=== PATIENT | male | born 1955 | race Caucasian/White ===

== ENCOUNTER → 2019-03-12 | Emergency (ER) | payer MEDICARE, OTHER ==
[~2019-03-12] VITALS: Ht 167.6 cm; Wt 59.0 kg
[~2019-03-12] MED LIST: ACETAMINOPHEN 325 MG TABLET ONE; ACETAMINOPHEN 325 MG TABLET PO ONE; DIPHENHYDRAMINE HCL 12.5 MG/5 ML UDC PO ONE; KETOROLAC TROMETHAMINE 15 MG/ML VIAL ONE; KETOROLAC TROMETHAMINE INJ 30 MG/ML VIAL IM ONE; LEVE750T10 PO; METOCLOPRAMIDE HCL 10 MG TABLET ONE; METOCLOPRAMIDE HCL 10 MG TABLET PO ONE; NORT10CA PO; OXYC15TA2 PO; PENT400T17 PO; diphenhydrAMINE HCL 25 MG CAPSULE ONE
[2019-03-12 13:30] VITALS: BP 137/80
--- NOTE | 2019-03-12 14:19 | NUR ---
PATIENT A/OX4, AMBULATORY IN STEADY GAIT. DENIES PAIN AT THIS TIME. REFUSED TO SIGN HOMELESS WAIVER FORM. Patient given written and verbal discharge instructions. Patient verbalizes understanding of instructions. Patient is ambulatory with steady gait. Refuses offer of usp placement. Patient given list of available shelters in surrounding area. PATIENT DISCHARGED TO THE WAITING ROOM, WAITING FOR TEST SPECIALIST.
--- NOTE | 2019-03-15 15:02 | NUR ---
Vamp Wetter Consultation requested over the weekend by Dr. Leighton Patel for individual experiencing homelessness. SW unable to assess patient as pt. was D/C 03/12 and SW not available over holiday weekend. Per EMR, pt. refused resources and usp placement and refused to sign Homeless Waiver Form.
== END | disposition home or self-care (01) ==
LOC: ER 11:04
DX: R51 Headache (principal); G89.29 Other chronic pain; M54.5 Low back pain; I10 Essential (primary) hypertension; Z59.0 Homelessness; Z79.899 Other long term (current) drug therapy
CPT/HCPCS: 96372; 99284; J1885; J8597; Q0163 ×2

== ENCOUNTER 2019-03-18 10:23 | Emergency (ER) | payer MEDICARE, OTHER ==
[~2019-03-18] VITALS: Ht 172.7 cm; Wt 65.3 kg
[~2019-03-18 10:23] MED LIST changes: -ACETAMINOPHEN 325 MG TABLET ONE; -ACETAMINOPHEN 325 MG TABLET PO ONE; -DIPHENHYDRAMINE HCL 12.5 MG/5 ML UDC PO ONE; -KETOROLAC TROMETHAMINE 15 MG/ML VIAL ONE; -KETOROLAC TROMETHAMINE INJ 30 MG/ML VIAL IM ONE; -METOCLOPRAMIDE HCL 10 MG TABLET ONE; -METOCLOPRAMIDE HCL 10 MG TABLET PO ONE; -diphenhydrAMINE HCL 25 MG CAPSULE ONE
--- NOTE | 2019-03-18 10:26 | NUR ---
PT [id number], PER EMS AMS. INITIALLY WENT TO URGENT CARE FOR HEADACHE AND SENT OUT. PER REPORT, SECURITY CALLED 911. PT IS AAOX3, NOT IN RESPIRATORY DISTRESS, HOOKED TO MONITOR, KEPT RESTED AND COMFORTABLE, WILL CONTINUE TO MONITOR.
--- NOTE | 2019-03-18 10:35 | NUR ---
PT SEEN AND EXAMINED BY .
--- NOTE | 2019-03-18 11:47 | NUR ---
AWAITING PACK TRAIN DRIVER FOR EVAL.
--- NOTE | 2019-03-18 11:49 | NUR ---
PROJECT MGR AT BEDSIDE FOR EVAL.
--- NOTE | 2019-03-18 11:59 | NUR ---
IV removed. Catheter intact and site benign. Pressure and 4x4 applied to site. No bleeding noted.
--- NOTE | 2019-03-18 12:05 | NUR ---
Patient given written and verbal discharge instructions. Patient verbalizes understanding of instructions. Patient is ambulatory with steady gait. Refuses offer of residential placement. Patient given list of available shelters in surrounding area. Patient discharged in proper clothing. All belongings returned. Signed homeless waiver form. Name band removed. Tap Card provided.
[2019-03-18 12:07] VITALS: BP 129/78
--- NOTE | 2019-03-18 12:25 | NUR ---
Social service consult requested by ER staff. Pt is a 64 year old male who was admitted to [facility] for altered state. SW met with pt. bedside. Pts belongings were at bedside. Pt. is alert and oriented x3 (person, place, situation). Pt was cooperative with SW during the assessment. Pt. is ambulatory. Pt. states he has been homeless for a while. SW inquired with pt. if he has worked with any caseworkers in the community. Pt. stated, No. Pt. did not disclose any public benefits or income. Pt. states he would use alcohol, drugs, and cigarettes If I could. SW offered substance use program referrals and pt was receptive but declined being referred. SW offered emergency long-term referrals but pt. declined. ROCIO provided pt with information on emergency inland shelters [[facility]: package pick up address; [address] [place] [address]], in case pt changes motivation. ROCIO also provided the following referrals to pt: [facility] [address] [place] [id number] , [facility] [address] [facility]. [facility] [address] , and the [place]. Pt. denies suicidal and homicidal ideation at this time. Pt. signed homeless waiver and it was placed in chart. Pt. will require a TAP card upon discharge. No other services needed at this time. SW is available if needed.
[2019-03-19] MEDS ORDERED: TRAZ150T75 (20:46)
[2019-03-19] MEDS ORDERED: OMEP1CAP24 (20:46)
== END 2019-03-18 12:32 | disposition home or self-care (01) ==
LOC: ER 10:26
DX: G89.29 Other chronic pain (principal); M54.9 Dorsalgia, unspecified; I10 Essential (primary) hypertension; Z79.899 Other long term (current) drug therapy
CPT/HCPCS: 82962-TC

== ENCOUNTER 2019-03-18 15:47 | Emergency (ER) | payer MEDICARE, OTHER ==
[~2019-03-18] VITALS: Ht 167.6 cm; Wt 65.8 kg
[2019-03-18 16:11] VITALS: BP 158/101
--- NOTE | 2019-03-18 19:28 | NUR ---
PT SITTING IN THE WAITING ROOM CALLED FOR BED ASSIGNMENT. PT REFUSING TO BE SEEN.
--- NOTE | 2019-03-18 23:03 | NUR ---
PATIENT REFUSING TO BE SEEN.
[2019-03-19] MEDS ORDERED: OMEP1CAP24 (20:46)
[2019-03-19] MEDS ORDERED: TRAZ150T75 (20:46)
== END 2019-03-19 01:23 | disposition left against medical advice (07) ==
LOC: ER 15:48
DX: M54.5 Low back pain (principal); G89.29 Other chronic pain; Z53.21 Procedure and treatment not carried out due to patient leaving prior to being seen by health care provider
CPT/HCPCS: J7030

== ENCOUNTER 2019-03-19 14:00 | Inpatient (IN) | payer MEDICARE, OTHER ==
[~2019-03-19] VITALS: Ht 172.7 cm; Wt 69.9 kg
--- NOTE | 2019-03-19 14:15 | NUR ---
[id number] FROM THE COMFREY FOR GEN WEAKNESS. A/OX4, NO DISTRESS NOTED, AMBULATORY WITH STEADY GAIT. NEEDS ATTENDED. WILL MONITOR.
[2019-03-19 15:13] LABS: BASOPHILS % (AUTO) 0.4 % (0.0-2.0); HEMATOCRIT 44 % (39-51); HEMOGLOBIN 14.7 g/dL (13.5-17.5); LYMPHOCYTES # (AUTO) 0.4 /CMM (0.8-4.8); LYMPHOCYTES % (AUTO) 5.5 % (20.0-44.0); MEAN CORPUSCULAR HGB CONC 34 g/dl (31.0-36.0); MEAN CORPUSCULAR VOLUME 96 fL (80-96); MONOCYTES # (AUTO) 0.1 /CMM (0.1-1.30); MONOCYTES % (AUTO) 1.2 % (2.0-12.0); NEUTROPHILS # (AUTO) 6.8 /CMM (1.8-8.9); NEUTROPHILS % (AUTO) 92.9 % (43.0-81.0); PLATELET COUNT (AUTO) 111 /CMM (150-450); RED BLOOD CELL COUNT(AUTO) 4.54 MIL/uL (4.5-6.0); WHITE BLOOD COUNT (AUTO) 7.3 K/uL (4.3-11.0)
[2019-03-19 15:24] LABS: CALCIUM, SERUM 9.1 mg/dL (8.5-10.1); CARBON DIOXIDE 23 mmol/L (21-32); CHLORIDE 104 mmol/L (98-107); CREATININE 0.7 mg/dL (0.6-1.3); GLUCOSE 140 mg/dL (74-106); POTASSIUM 4.2 mmol/L (3.5-5.1); SODIUM SERUM 139 mmol/L (136-145); UREA NITROGEN, BLOOD 10 mg/dL (7-18)
[2019-03-19 15:29] LABS: ALANINE AMINOTRANSFERASE 112 U/L (12-78); ALBUMIN 3.7 g/dL (3.4-5.0); ALCOHOL, BLOOD < 3 mg/dL (0-0); ALKALINE PHOSPHATASE 135 U/L (46-116); ASPARTATE AMINOTRANSFERASE 84 U/L (15-37); BILIRUBIN,DIRECT 0.2 mg/dL (0.0-0.2); BILIRUBIN,TOTAL 0.5 mg/dL (0.2-1.0); SALICYLATE 3.5 mg/dL (2.8-20.0); TOTAL PROTEIN, SERUM 8.4 g/dL (6.4-8.2)
[2019-03-19 15:31] LABS: ACETAMINOPHEN 0 ug/ml (10-30)
[2019-03-19 15:55] LABS: APPEARANCE,URINE Clear (CLEAR); BILIRUBIN,URINE Negative (NEGATIVE); BLOOD, URINE Trace-lysed Ery/uL (NEGATIVE); COLOR,URINE Yellow (YELLOW); KETONES,URINE Negative (NEGATIVE); LEUKOCYTE ESTERASE ,URINE Negative (NEGATIVE); NITRITE, URINE Negative (NEGATIVE); PH,URINE 7.5 (5.0-8.0); PROTEIN,URINE Negative (NEGATIVE); UGLUCOSE Negative (NEGATIVE); UROBILINOGEN,URINE 0.2 EU/dL (0.2)
[2019-03-19 16:29] LABS: BACTERIA,URINE None seen /HPF (None Seen); RBC,URINE 0-2 /HPF (0-2); SQUAMOUS EPITHELIAL CELL,UR Few /HPF (None Seen); WBC,URINE 0-2 /HPF (0-3)
--- NOTE | 2019-03-19 18:11 | NUR ---
GOT BED 211
--- NOTE | 2019-03-19 18:26 | NUR ---
ATTEMPTED TO GIVE REPORT.
--- NOTE | 2019-03-19 18:40 | NUR ---
REPORT GIVEN TO ODIN STALEY FOR SHERINE. PATIENT TRANSFERRED TO [facility] IN STABLE CONDITION.
[2019-03-19] MEDS ORDERED: MAGNESIUM HYDROXIDE 30 ML UDC PO PRN (20:00)
[2019-03-19] MEDS ORDERED: ACETAMINOPHEN 325 MG TABLET PO PRN (20:00)
[2019-03-19] MEDS ORDERED: MAG HYDROX/AL HYDROX/SIMETH 30 ML UDC PO PRN (20:00)
[2019-03-19 20:30] VITALS: BP 151/98
[2019-03-19] MEDS ORDERED: OMEP1CAP24 (20:46)
[2019-03-19] MEDS ORDERED: TRAZ150T75 (20:46)
[2019-03-19] MEDS: LORAZEPAM 0.5 MG TABLET PO PRN (20:51)
--- NOTE | 2019-03-19 20:51 | NUR ---
RN NOTES: PT. C/O FEELING ANXIOUS, RESTLESS , ATIVAN 0.5 MG PO PRN GIVEN PER PT. REQUEST , WILL CONTINUE TO MONITOR.
[2019-03-19 21:31] VITALS: BP 135/70
[2019-03-19] MEDS ORDERED: BLOOD SUGAR DIAGNOSTIC 1 EACH STRIP IN ONE (22:00)
--- NOTE | 2019-03-19 22:37 | NUR ---
ADMISSION NOTES: ADMITTED THIS 64Y/O MALE PATIENT ADMIT FROM SOH/ER , PT ADMITTED TO GPS ON 5150 HOLD GRAVELY DISABLE , PER HOLD, DEPRESSED ,CONFUSED ,DISORGNIZED, DISORIENTED, REFUSING MEDICATION REFUSING STAFF CARE, PT.IS POOR HISTORIAN , HE IS UNABLE TO PROVIDE FOR HIS FOOD [facility] OR CLOTHING DUE TO HIS MENTAL DISORDER .UPON FACE TO FACE ASSESSMENT PATIENT IS A&O X ,1 CONFUSED DISORGNIZED, DISORIENTED ANXIOUS, FLAT AFFECT,PARANOID DISHELVED, ,EASILY GETS AGITATED, DENIES SI/HI AT THIS TIME , PT. IS POOR HISTORIAN, POOR INSIGHT ,POOR JUDGEMENT , PT. REFUSED TO TAKE SHOWER AT THIS TIME , PT. REFUSED TO SIGNS ADMISSION CONSENT PAPERS , DUE TO MENTAL STATUS CONFUSED , PT. REFUSED INTITAALY BODY SKIN ASSESSMENT, PER PT. MY SKIN IS FINE, PT. REFUSED INTIALLY BLOOD SUGAR CHECK , ENCOURAGED, EXPLAINED RISKS AND BENEFITS STILL REFUSED , BOTH MD AWARE AND NOTIFIED OF THE ADMISSION, BELONGINGS CONTRABAND WERE DONE , NURSING ASSESSMENT DONE ,PT. RIGHTS DISCUSS BY INVESTMENT CONSULTANT , PROVIDE THE PT. WITH HANDBOOK, AND MEDICATIONS GUIDE, ENVIRONMENTAL SAFETY CHECK DONE, ENCOURAGED PT. VERBALIZED ANY FEELING CONCERN TO STAFF, ORIENT TO UNIT POLICY, NO ACUTE DISTRESS NOTED,VITAL SIGNS WNL ,DENIES ANY PAIN AT THIS TIME ,WILL CONTINUE TO MONITOR FOR Q15 SAFETY AND BEHAVIOR.
[2019-03-20] MEDS ORDERED: oxyCODONE IR immediate release 5 MG PO PRN (01:00)
[2019-03-20] MEDS: TEMAZEPAM 7.5 MG CAPSULE PO PRN ×2 (01:16→22:00)
--- NOTE | 2019-03-20 01:16 | NUR ---
RN NOTES: PT. C/O INSOMNIA RESTORIL 7.5 MG PO PRN GIVEN ,PER PT. REQUEST, WILL CONTINUE TO MONITOR.
[2019-03-20] MEDS: oxyCODONE IR immediate release 5 MG PO PRN ×2 (04:28→18:00)
--- NOTE | 2019-03-20 04:28 | NUR ---
GPS RN NOTE, PATIENT HAS A COMPLAINT OF LOWER BACK PAIN AT 8 OUT OF 10 ON THE PAIN SCALE AND IS REQUESTING OXY IR AT THIS TIME. PATIENT VITAL SIGNS ARE STABLE. GAVE 15 MG PO OXY IR QID PRN ORDERED. WILL REASSESS FOR PAIN AND I WILL CONTINUE TO MONITOR THIS PATIENT.
[2019-03-20 08:00] VITALS: BP 155/88
[2019-03-20] MEDS: PENTOXIFYLLINE 400 MG TABLET.SA PO SCH ×2 (08:07→17:22)
[2019-03-20] MEDS: NICOTINE PATCH (21MG) 21 MG PATCH.TD24 TD SCH (08:07)
[2019-03-20] MEDS: LEVETIRACETAM (250 MG) 250 MG TABLET PO SCH ×2 (08:07→17:22)
[2019-03-20] MEDS: LORAZEPAM 0.5 MG TABLET PO PRN ×2 (08:07→23:55)
[2019-03-20] MEDS ORDERED: NICOTINE PATCH (7MG) 7 MG PATCH.TD24 TD SCH (09:00)
[2019-03-20 12:07] LABS: BASOPHILS % (AUTO) 0.2 % (0.0-2.0); EOSINOPHILS % (AUTO) 0.1 % (0.0-6.0); HEMATOCRIT 40 % (39-51); HEMOGLOBIN 13.5 g/dL (13.5-17.5); LYMPHOCYTES # (AUTO) 2.3 /CMM (0.8-4.8); LYMPHOCYTES % (AUTO) 19.5 % (20.0-44.0); MEAN CORPUSCULAR HGB CONC 34 g/dl (31.0-36.0); MEAN CORPUSCULAR VOLUME 96 fL (80-96); MONOCYTES # (AUTO) 1.4 /CMM (0.1-1.30); MONOCYTES % (AUTO) 11.4 % (2.0-12.0); NEUTROPHILS # (AUTO) 8.2 /CMM (1.8-8.9); NEUTROPHILS % (AUTO) 68.8 % (43.0-81.0); RED BLOOD CELL COUNT(AUTO) 4.21 MIL/uL (4.5-6.0); WHITE BLOOD COUNT (AUTO) 11.9 K/uL (4.3-11.0)
[2019-03-20] MEDS: SERTRALINE HCL 25 MG TABLET PO SCH (12:28)
[2019-03-20] MEDS: GABAPENTIN 100 MG CAPSULE PO SCH ×3 (12:29→17:22)
[2019-03-20 12:39] LABS: ALBUMIN 3.1 g/dL (3.4-5.0); BILIRUBIN,TOTAL 0.5 mg/dL (0.2-1.0); CALCIUM, SERUM 8.5 mg/dL (8.5-10.1); CREATININE 1.1 mg/dL (0.6-1.3); TOTAL PROTEIN, SERUM 7.2 g/dL (6.4-8.2)
[2019-03-20 13:51] LABS: PLATELET COUNT (AUTO) 108 /CMM (150-450)
[2019-03-20 16:07] VITALS: BP 144/81
--- NOTE | 2019-03-20 19:43 | NUR ---
GPS RN OPENING NOTES RECEIVED PATIENT AMBULATING IN THE HALLWAY, IN & OUT OF BED AT TIMES. A & O X 1, CONFUSED/FORGETFUL. NO ACUTE DISTRESS OR CHANGES NOTED AT THIS TIME. NO C/O PAIN VERBALIZED. SAFETY MEASURES IN PLACE WITH BED IN LOW LOCKED POSITION. CALL [facility] WITHIN REACH. WILL CONTINUE TO MONITOR FOR SAFETY & BEHAVIOR.
[2019-03-20 20:12] VITALS: BP 149/89
--- NOTE | 2019-03-21 06:33 | NUR ---
GPS RN CLOSING NOTE PATIENT SLEPT 6 HOURS AT NIGHT, ANXIOUS, HYPERVERBAL. NO DISTRESS, NO C/O PAIN VERBALIZED. NO CHANGE OF CONDITION NOTED. REQUESTED TO GET OXY IR FOR BACK PAIN BUT WHEN OFFERED PT. REFUSED OXY IR STATED, HE DOES NOT NEED IT & WENT TO SLEEP". REFUSED SKIN ASSESSMENT AT NIGHT. ALL NEEDS ATTENDED TO & MET. SAFETY MEASURES MAINTAINED. Q15 MINS CHECKS DONE. NO SI/HI/AVH VERBALIZED DURING THE SHIFT. BED IN LOW LOCKED POSITION. BED ALARM ON. CALL [facility] WITHIN REACH. WILL ENDORSE TO AM RN FOR CONTINUITY OF CARE
[2019-03-21 08:00] VITALS: BP 155/90
[2019-03-21] MEDS: PENTOXIFYLLINE 400 MG TABLET.SA PO SCH ×2 (08:58→17:22)
[2019-03-21] MEDS: NICOTINE PATCH (21MG) 21 MG PATCH.TD24 TD SCH (08:58)
[2019-03-21] MEDS: LEVETIRACETAM (250 MG) 250 MG TABLET PO SCH ×2 (08:58→17:22)
[2019-03-21] MEDS: GABAPENTIN 100 MG CAPSULE PO SCH (08:58)
[2019-03-21 09:41] LABS: BASOPHILS # (AUTO) 0.1 /CMM (0.0-0.2); BASOPHILS % (AUTO) 1.7 % (0.0-2.0); EOSINOPHILS % (AUTO) 1.2 % (0.0-6.0); HEMATOCRIT 42 % (39-51); HEMOGLOBIN 14.3 g/dL (13.5-17.5); LYMPHOCYTES # (AUTO) 2.8 /CMM (0.8-4.8); MEAN CORPUSCULAR HGB CONC 34 g/dl (31.0-36.0); MEAN CORPUSCULAR VOLUME 96 fL (80-96); MONOCYTES # (AUTO) 0.9 /CMM (0.1-1.30); MONOCYTES % (AUTO) 12.8 % (2.0-12.0); NEUTROPHILS # (AUTO) 3.1 /CMM (1.8-8.9); NEUTROPHILS % (AUTO) 44.3 % (43.0-81.0); RED BLOOD CELL COUNT(AUTO) 4.34 MIL/uL (4.5-6.0); WHITE BLOOD COUNT (AUTO) 6.9 K/uL (4.3-11.0)
[2019-03-21] MEDS: oxyCODONE IR immediate release 5 MG PO PRN (09:46)
[2019-03-21 10:00] LABS: CALCIUM, SERUM 8.9 mg/dL (8.5-10.1); CREATININE 0.9 mg/dL (0.6-1.3); POTASSIUM 3.7 mmol/L (3.5-5.1)
[2019-03-21 11:55] LABS: PLATELET COUNT (AUTO) 146 /CMM (150-450)
[2019-03-21] MEDS: GABAPENTIN 300 MG CAPSULE PO SCH ×2 (13:22→17:22)
[2019-03-21] MEDS: SERTRALINE HCL 25 MG TABLET PO SCH (13:22)
[2019-03-21 16:00] VITALS: BP 162/99
[2019-03-21] MEDS: LORAZEPAM 0.5 MG TABLET PO PRN (16:33)
--- NOTE | 2019-03-21 16:36 | NUR ---
RN NOTE- PT ANXIOUS. REQUESTING MEDS FOR ANXIETY. ATIVAN 1 MG PO GIVEN. MONITOR
[2019-03-21 20:31] VITALS: BP 126/74
--- NOTE | 2019-03-22 06:04 | NUR ---
Patient refused skin assessment.
[2019-03-22 08:00] VITALS: BP 146/95
[2019-03-22] MEDS: GABAPENTIN 300 MG CAPSULE PO SCH ×3 (08:30→17:40)
[2019-03-22] MEDS: NICOTINE PATCH (21MG) 21 MG PATCH.TD24 TD SCH (08:30)
[2019-03-22] MEDS: PENTOXIFYLLINE 400 MG TABLET.SA PO SCH ×2 (08:30→17:40)
[2019-03-22] MEDS: LEVETIRACETAM (250 MG) 250 MG TABLET PO SCH ×2 (08:30→17:40)
[2019-03-22] MEDS: SERTRALINE HCL 25 MG TABLET PO SCH ×2 (12:21→19:57)
[2019-03-22] MEDS: AMLODIPINE BESYLATE 5 MG TABLET PO SCH (12:21)
--- NOTE | 2019-03-22 14:03 | NUR ---
INITIAL DISCHARGE PLAN: Pt is homeless and needs placement. SW will help form a safe and proper discharge in collaboration with MD.
--- NOTE | 2019-03-22 15:41 | NUR ---
GROUP NOTE: SW encouraged pt to attend group on this present day discussing "discharge planning." Pt refused stating, "close the door and leave me alone." SW provided to engage pt in conversation and provide intervention and pt refused.
[2019-03-22 15:45] VITALS: BP 161/85
[2019-03-22 20:11] VITALS: BP 138/79
[2019-03-22] MEDS: TEMAZEPAM 7.5 MG CAPSULE PO PRN (23:13)
[2019-03-23] MEDS: oxyCODONE IR immediate release 5 MG PO PRN ×3 (01:31→15:55)
[2019-03-23] MEDS: LORAZEPAM 0.5 MG TABLET PO PRN (05:29)
--- NOTE | 2019-03-23 05:33 | NUR ---
RN NOTES: PT. NOTED VERY AGGRESSIVE PACING IN HALLWAY HYPERVERBAL, SCREAMING ,YELLING ,PARANOID,NOT FOLLOWING ANY REDIRECTIONS, ATIVAN 1 MG PO PRN GIVEN ,WILL CONTINUE TO MONITOR.
[2019-03-23 08:00] VITALS: BP 148/89
[2019-03-23] MEDS: GABAPENTIN 300 MG CAPSULE PO SCH ×3 (08:39→17:05)
[2019-03-23] MEDS: AMLODIPINE BESYLATE 5 MG TABLET PO SCH (08:39)
[2019-03-23] MEDS: LEVETIRACETAM (250 MG) 250 MG TABLET PO SCH ×2 (08:39→17:05)
[2019-03-23] MEDS: NICOTINE PATCH (21MG) 21 MG PATCH.TD24 TD SCH (08:40)
[2019-03-23] MEDS: PENTOXIFYLLINE 400 MG TABLET.SA PO SCH ×2 (08:40→17:06)
--- NOTE | 2019-03-23 09:40 | NUR ---
RN NOTE: PT C/O 11/21 HEAD AND UPPER BACK PAIN. PAIN IS CHRONIC. MEDICATED WITH PAIN MEDICATIONS PRN. WILL REASSESS EFFECTIVENESS.
[2019-03-23] MEDS: SERTRALINE HCL 25 MG TABLET PO SCH ×2 (12:17→17:06)
--- NOTE | 2019-03-23 14:12 | NUR ---
RN NOTE: PT EXHIBITING INCREASED PARANOIA. PT BELIEVES HIS PERSONAL BELONGINGS ARE BEING STOLEN. OFFERED POS ATIVAN 1MG. PT REFUSED. WILL CONT TO MONITOR PT'S BEHAVIOR.
[2019-03-23 16:00] VITALS: BP 154/95
[2019-03-23 20:25] VITALS: BP 140/82
[2019-03-23] MEDS: TEMAZEPAM 7.5 MG CAPSULE PO PRN (23:47)
[2019-03-24 08:00] VITALS: BP 143/84
[2019-03-24] MEDS: AMLODIPINE BESYLATE 5 MG TABLET PO SCH (08:45)
[2019-03-24] MEDS: GABAPENTIN 300 MG CAPSULE PO SCH ×4 (08:45→21:35)
[2019-03-24] MEDS: LEVETIRACETAM (250 MG) 250 MG TABLET PO SCH ×2 (08:45→16:11)
[2019-03-24] MEDS: NICOTINE PATCH (21MG) 21 MG PATCH.TD24 TD SCH (08:45)
[2019-03-24] MEDS: PENTOXIFYLLINE 400 MG TABLET.SA PO SCH ×2 (08:45→16:11)
--- NOTE | 2019-03-24 12:11 | NUR ---
SNF REFERRAL: ROCIO faxed SNF referral to Bernie classroom coordinator at [facility] Address: [address] [facility] [address], [place] [address] for review.
[2019-03-24] MEDS: SERTRALINE HCL 25 MG TABLET PO SCH ×2 (12:15→16:11)
[2019-03-24] MEDS: oxyCODONE IR immediate release 5 MG PO PRN (12:16)
--- NOTE | 2019-03-24 13:44 | NUR ---
SNF: SW received a call from delfin Morris at [facility] Address: [address] [facility], [place] [address] stating pt has been accepted to the facility.
[2019-03-24] MEDS: LORAZEPAM 0.5 MG TABLET PO PRN (14:21)
--- NOTE | 2019-03-24 14:21 | NUR ---
RN NOTE: PT EXPRESSED INCREASED AGITATION WITH NOISES WITHIN THE UNIT. INCREASE AGITATION AND IRRITABILITY NOTED. MEDICATED WITH ATIVAN 1MG PO.
[2019-03-24 16:00] VITALS: BP 146/93
--- NOTE | 2019-03-24 19:35 | NUR ---
GPS DAYLIGHT DRILLER INITIAL NOTES. RECEIVED REPORT FROM AM NURSE AND SEEN PT IN HIS ROOM STANDING AND WALKING BACK AND FORT AND ASKING FOR THE OFFICE IF ITS OPEN . I SPOKE TO HIM IF HE NEEDS SOMETHING OR ANY CONCERN HE JUST WENT BACK TO HIS ROOM. NO SIGNS OF AGITATION OR ANY SUICIDAL IDEATION NOTED AT THIS TIME. WILL CONTINUE MONITORING Q 15 MINUTES FOR SAFETY.
[2019-03-24 20:10] VITALS: BP 133/79
[2019-03-24] MEDS: TEMAZEPAM 7.5 MG CAPSULE PO PRN (21:35)
[2019-03-25 08:00] VITALS: BP 133/67
[2019-03-25] MEDS: GABAPENTIN 300 MG CAPSULE PO SCH ×4 (08:18→21:10)
[2019-03-25] MEDS: AMLODIPINE BESYLATE 5 MG TABLET PO SCH (08:18)
[2019-03-25] MEDS: LEVETIRACETAM (250 MG) 250 MG TABLET PO SCH ×2 (08:18→16:39)
[2019-03-25] MEDS: NICOTINE PATCH (21MG) 21 MG PATCH.TD24 TD SCH (08:18)
[2019-03-25] MEDS: PENTOXIFYLLINE 400 MG TABLET.SA PO SCH ×2 (08:18→16:39)
[2019-03-25] MEDS: SERTRALINE HCL 25 MG TABLET PO SCH (12:22)
[2019-03-25] MEDS: SERTRALINE HCL 50 MG TABLET PO SCH (17:08)
--- NOTE | 2019-03-25 20:00 | NUR ---
GPS/RN NOTE: PATIENT LYING IN BED, NO APPARENT DISTRESS NOTED, CALM AND COMFORTABLE. WILL CONTINUE TO MONITOR DURING THE NIGHT.
[2019-03-25 20:31] VITALS: BP 140/79
[2019-03-25] MEDS: oxyCODONE IR immediate release 5 MG PO PRN (20:35)
--- NOTE | 2019-03-25 20:35 | NUR ---
GPS/RN NOTE: C/O HEADACHE, OXYCODONE 15 MG TAB PO GIVEN.
--- NOTE | 2019-03-25 23:14 | NUR ---
GPS/RN NOTE: C/O GASTRIC UPSET, MAALOX 30 ML PO GIVEN.
[2019-03-26] MEDS: LORAZEPAM 0.5 MG TABLET PO PRN (00:18)
--- NOTE | 2019-03-26 00:18 | NUR ---
GPS/RN NOTE: AWAKE, FEELING ANXIOUS ABOUT HIS POSSIBLE DISCHARGE, ATIVAN 1 MG TAB PO GIVEN.
[2019-03-26 08:00] VITALS: BP 157/97
[2019-03-26] MEDS: NICOTINE PATCH (21MG) 21 MG PATCH.TD24 TD SCH (08:40)
[2019-03-26] MEDS: PENTOXIFYLLINE 400 MG TABLET.SA PO SCH ×2 (08:41→16:58)
[2019-03-26] MEDS: LEVETIRACETAM (250 MG) 250 MG TABLET PO SCH ×2 (08:41→16:58)
[2019-03-26] MEDS: GABAPENTIN 300 MG CAPSULE PO SCH ×4 (08:41→21:21)
[2019-03-26] MEDS: AMLODIPINE BESYLATE 5 MG TABLET PO SCH (08:41)
[2019-03-26] MEDS: SERTRALINE HCL 25 MG TABLET PO SCH (12:37)
[2019-03-26 14:30] LABS: BASOPHILS # (AUTO) 0.1 /CMM (0.0-0.2); BASOPHILS % (AUTO) 0.8 % (0.0-2.0); EOSINOPHILS % (AUTO) 2.2 % (0.0-6.0); HEMATOCRIT 42 % (39-51); HEMOGLOBIN 14.5 g/dL (13.5-17.5); LYMPHOCYTES # (AUTO) 1.5 /CMM (0.8-4.8); LYMPHOCYTES % (AUTO) 24.2 % (20.0-44.0); MEAN CORPUSCULAR HGB CONC 35 g/dl (31.0-36.0); MEAN CORPUSCULAR VOLUME 95 fL (80-96); MONOCYTES # (AUTO) 0.8 /CMM (0.1-1.30); MONOCYTES % (AUTO) 12.8 % (2.0-12.0); NEUTROPHILS # (AUTO) 3.8 /CMM (1.8-8.9); PLATELET COUNT (AUTO) 112 /CMM (150-450); RED BLOOD CELL COUNT(AUTO) 4.38 MIL/uL (4.5-6.0); WHITE BLOOD COUNT (AUTO) 6.4 K/uL (4.3-11.0)
[2019-03-26 14:31] LABS: ALBUMIN 3.3 g/dL (3.4-5.0); BILIRUBIN,TOTAL 0.9 mg/dL (0.2-1.0); CALCIUM, SERUM 8.5 mg/dL (8.5-10.1); CREATININE 0.8 mg/dL (0.6-1.3); POTASSIUM 4.3 mmol/L (3.5-5.1); TOTAL PROTEIN, SERUM 7.5 g/dL (6.4-8.2)
[2019-03-26 16:00] VITALS: BP 136/82
[2019-03-26] MEDS: SERTRALINE HCL 50 MG TABLET PO SCH (16:58)
[2019-03-26] MEDS: oxyCODONE IR immediate release 5 MG PO PRN ×2 (17:01→22:53)
--- NOTE | 2019-03-26 20:01 | NUR ---
GPS/RN NOTE: AWAKE, CONFUSED, FORGETFUL, KEPT REPEATING SELF. NO APPARENT DISTRESS NOTED. AMBULATORY, IN AND OUT OF HIS ROOM, BACK AND FORTH AT THE NURSE'S STATION. FLIGHT OF IDEAS NOTED. CALM, QUIET, COOPERATIVE, FOLLOWS DIRECTION AND INSTRUCTIONS. WILL CONTINUE TO MONITOR FOR SAFETY AND BEHAVIOR.
[2019-03-26 20:57] VITALS: BP 147/93
[2019-03-26] MEDS: TEMAZEPAM 7.5 MG CAPSULE PO PRN (21:22)
--- NOTE | 2019-03-26 21:22 | NUR ---
GPS/RN NOTE: TEMAZEPAM 7.5 MG CAP PO GIVEN FOR SLEEP.
--- NOTE | 2019-03-26 22:53 | NUR ---
GPS/RN NOTE: AWAKE, C/O HEADACHE, 8/10 ON PAIN SCALE, OXYIR 15 MG TAB PO GIVEN.
[2019-03-27 08:00] VITALS: BP 117/60
[2019-03-27] MEDS: NICOTINE PATCH (21MG) 21 MG PATCH.TD24 TD SCH (08:33)
[2019-03-27] MEDS: PENTOXIFYLLINE 400 MG TABLET.SA PO SCH ×2 (08:34→17:30)
[2019-03-27] MEDS: LEVETIRACETAM (250 MG) 250 MG TABLET PO SCH ×2 (08:34→17:29)
[2019-03-27] MEDS: GABAPENTIN 300 MG CAPSULE PO SCH ×4 (08:34→21:01)
[2019-03-27] MEDS: AMLODIPINE BESYLATE 5 MG TABLET PO SCH (08:34)
[2019-03-27] MEDS: SERTRALINE HCL 25 MG TABLET PO SCH (12:31)
[2019-03-27 16:00] VITALS: BP 155/89
[2019-03-27] MEDS: SERTRALINE HCL 50 MG TABLET PO SCH (17:29)
--- NOTE | 2019-03-27 19:20 | NUR ---
GPS RN OPENING NOTES RECEIVED PATIENT AMBULATING IN THE HALLWAY, IN & OUT OF BED AT TIMES. A & O X 1, CONFUSED/FORGETFUL, DISORGANIZED. NO ACUTE DISTRESS OR CHANGES NOTED AT THIS TIME. NO C/O PAIN VERBALIZED. SAFETY MEASURES IN PLACE WITH BED IN LOW LOCKED POSITION. CALL [facility] WITHIN REACH. WILL CONTINUE TO MONITOR FOR SAFETY & BEHAVIOR.
[2019-03-27 20:08] VITALS: BP 164/82
--- NOTE | 2019-03-27 20:35 | NUR ---
GPS/RN NOTE: ROAMING AROUND THE UNIT, CONFUSED, ANXIOUS, LORAZEPAM 1 MG PO GIVEN.
[2019-03-27] MEDS: LORAZEPAM 0.5 MG TABLET PO PRN (21:02)
[2019-03-27] MEDS: TEMAZEPAM 7.5 MG CAPSULE PO PRN (22:23)
--- NOTE | 2019-03-27 22:23 | NUR ---
GPS/RN NOTE: C/O INSOMNIA, TEMAZEPAM 7.5 MG CAP PO GIVEN.
[2019-03-28 06:11] VITALS: BP 134/93
[2019-03-28 08:00] VITALS: BP 119/73
[2019-03-28] MEDS: LEVETIRACETAM (250 MG) 250 MG TABLET PO SCH ×2 (08:23→21:16)
[2019-03-28] MEDS: GABAPENTIN 300 MG CAPSULE PO SCH ×4 (08:23→21:16)
[2019-03-28] MEDS: PENTOXIFYLLINE 400 MG TABLET.SA PO SCH ×2 (08:23→16:01)
[2019-03-28] MEDS: NICOTINE PATCH (21MG) 21 MG PATCH.TD24 TD SCH (08:23)
[2019-03-28] MEDS: AMLODIPINE BESYLATE 5 MG TABLET PO SCH (08:23)
[2019-03-28] MEDS: SERTRALINE HCL 25 MG TABLET PO SCH (12:26)
[2019-03-28] MEDS: oxyCODONE IR immediate release 5 MG PO PRN ×2 (12:32→18:35)
--- NOTE | 2019-03-28 12:33 | NUR ---
GPS/RN NOTE: AWAKE, C/O HEADACHE, 8/10 ON PAIN SCALE, OXYIR 15 MG TAB PO GIVEN.
[2019-03-28 16:00] VITALS: BP 125/79
[2019-03-28] MEDS: SERTRALINE HCL 50 MG TABLET PO SCH (16:01)
--- NOTE | 2019-03-28 18:35 | NUR ---
GPS/RN NOTE: AWAKE, C/O HEADACHE, 8/10 ON PAIN SCALE, OXYIR 15 MG TAB PO GIVEN.
[2019-03-28 19:59] VITALS: BP 131/78
--- NOTE | 2019-03-28 22:40 | NUR ---
GPS RN NOTE PATIENT IS UP IN A WHEELCHAIR, OFFERED RESTORIL 7.5 MG PRN BUT PATIENT REFUSED AT THIS TIME, WILL OFFER AGAIN.
[2019-03-29] MEDS: TEMAZEPAM 7.5 MG CAPSULE PO PRN ×2 (00:20→22:14)
--- NOTE | 2019-03-29 00:24 | NUR ---
PRN RESTORIL GIVEN PATIENT IS UNABLE TO SLEEP, OFFERED HIM RESTORIL AGAIN, PT. AGREED & TOOK RESTORIL 7.5 MG PRN FOR SLEEP. WILL MONITOR CLOSELY.
--- NOTE | 2019-03-29 04:47 | NUR ---
GPS RN NOTE PATIENT REFUSED SKIN ASSESSMENT, EASILY AGITATED, AGGRESSIVE, UNCOOPERATIVE. CONTINUED TO REFUSE ASSESSMENT x 3.
[2019-03-29 08:00] VITALS: BP 156/68
[2019-03-29] MEDS: NICOTINE PATCH (21MG) 21 MG PATCH.TD24 TD SCH (08:41)
[2019-03-29] MEDS: AMLODIPINE BESYLATE 5 MG TABLET PO SCH (08:41)
[2019-03-29] MEDS: PENTOXIFYLLINE 400 MG TABLET.SA PO SCH ×2 (08:42→16:33)
[2019-03-29] MEDS: LEVETIRACETAM (250 MG) 250 MG TABLET PO SCH ×2 (08:42→21:39)
[2019-03-29] MEDS: GABAPENTIN 300 MG CAPSULE PO SCH ×4 (08:42→21:39)
[2019-03-29] MEDS: SERTRALINE HCL 25 MG TABLET PO SCH (12:26)
--- NOTE | 2019-03-29 15:20 | NUR ---
Group Note: SW went to patient's room to invite patient to attend today's support group at 1:00pm regarding holiday sensory activity being held in the activities room. Patient presented laying on their bed sleeping. SW attempted to wake patient but pt. was not easily rousable.
[2019-03-29 16:00] VITALS: BP 108/69
[2019-03-29] MEDS: SERTRALINE HCL 50 MG TABLET PO SCH (16:33)
[2019-03-29] MEDS: oxyCODONE IR immediate release 5 MG PO PRN (17:43)
[2019-03-29 20:19] VITALS: BP 133/92
[2019-03-30] MEDS: LORAZEPAM 0.5 MG TABLET PO PRN (01:27)
[2019-03-30 08:00] VITALS: BP 120/76
[2019-03-30] MEDS: PENTOXIFYLLINE 400 MG TABLET.SA PO SCH (08:55)
[2019-03-30] MEDS: GABAPENTIN 300 MG CAPSULE PO SCH ×2 (08:55→12:39)
[2019-03-30] MEDS: LEVETIRACETAM (250 MG) 250 MG TABLET PO SCH (08:55)
[2019-03-30] MEDS: NICOTINE PATCH (21MG) 21 MG PATCH.TD24 TD SCH (08:55)
[2019-03-30 08:57] VITALS: BP 120/76
[2019-03-30] MEDS: AMLODIPINE BESYLATE 5 MG TABLET PO SCH (08:57)
--- NOTE | 2019-03-30 10:14 | NUR ---
DISCHARGE NOTE: Pt will be discharged at 1:00pm via [facility] to [facility] ([facility]) [address] [place] [address]. [place] [address] P: [phone]. Pt has no family to notify. Pts mood is paranoid with flat affect. Pt denied visual/auditory hallucinations and Pt denied suicidal/homicidal ideation. Pt will be under the care of Psychiatrist: Dr. Dixie Mike [address] [place] [address] [address], [place] [address] and Credit Controller: Dr Foster Address: [address] [place] [address] [address] [address] . The multidisciplinary exit care form was done, printed, signed, and given to the patient.
--- NOTE | 2019-03-30 12:45 | NUR ---
RN NOTES Patient discharged at this time. No sob noted, patient denies pain at this time, patient's vital signs stable. Patient has all paperwork for discharge and patient signed belongings list and states that nothing is missing. Report given to SNF that is accepting patient with no further questions.
[2019-03-30] MEDS ORDERED: SERTRALINE HCL 25 MG TABLET PO SCH (13:00)
--- NOTE | 2019-03-31 14:17 | NUR ---
COLLATERAL CONTACT: ROCIO received a call from Yvette clinical social worker at [facility]: Emergency Room Address: [address] [facility] [address] , [place] [address] stating that pt was found wandering the streets, confused, disoriented, and disorganized and was admitted to their hospital. ROCIO informed her that pt was discharged to [facility] ([facility] yesterday 03/30/19 and pt went willingly via ambulance. ROCIO informed her that pt arrived safely to the facility and what happened afterwards should be discussed directly with the SNF. Yvette understood and stated she would contact [facility].
== END 2019-03-30 12:50 | DRG 885 ==
LOC: ER 14:04 → GPS 18:34
PROVIDERS: ADMIT Psychiatry & Neurology Psychosomatic Medicine; ATTEND Registered Nurse
DX: F32.3 Major depressive disorder, single episode, severe with psychotic features (principal); F23 Brief psychotic disorder; E44.1 Mild protein-calorie malnutrition; F17.210 Nicotine dependence, cigarettes, uncomplicated; I10 Essential (primary) hypertension; G89.29 Other chronic pain; G47.00 Insomnia, unspecified; Z59.0 Homelessness; Z73.6 Limitation of activities due to disability; R53.1 Weakness; R74.0 Nonspecific elevation of levels of transaminase and lactic acid dehydrogenase [LDH]; F10.10 Alcohol abuse, uncomplicated; Y90.0 Blood alcohol level of less than 20 mg/100 ml; E88.09 Other disorders of plasma-protein metabolism, not elsewhere classified; Z68.23 Body mass index [BMI] 23.0-23.9, adult; F19.90 Other psychoactive substance use, unspecified, uncomplicated; M54.16 Radiculopathy, lumbar region; V89.2XXS Person injured in unspecified motor-vehicle accident, traffic, sequela; R56.9 Unspecified convulsions; K74.60 Unspecified cirrhosis of liver
CPT/HCPCS: 36415; 70450-TC; 80048-TC; 80053-TC; 80061-TC; 80076-TC; 80177; 80305; 81000-TC; 82140-TC; 82962-TC; 85025-TC; 87081-TC; 97116-TC; 97530-TC; G0480